=== PATIENT | male | born 1965 | race Caucasian/White ===

== ENCOUNTER 2017-11-12 10:02 | Emergency (ER) | payer OTHER, MEDICARE ==
[~2017-11-12] VITALS: Ht 182.9 cm; Wt 100.0 kg
[~2017-11-12 10:02] MED LIST: ADAL60TA9 PO; ATEN1TAB75 PO; BUPR-197 PO; CLON1 PO; DICL-86 PO; DOXY100T PO; ENDO5TAB6 PO; FENO50TA PO; FIORTAB4 PO; LORT5TAB PO; MOME1AER2 INH; MS C15TA7 PO; NEXI40CA PO; PROT40TA PO; SERT100 PO; SUMA6P SQ; TRAZ100T50 PO; VENTAER INH; ZOCO40TA PO; [UNRECOGNIZED DRUG - OTHER] PO
[2017-11-12 10:03] VITALS: BP 161/84; PULSE 76; RESP 16; TEMP 97.8; O2SAT 97
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
== END 2017-11-12 12:27 | disposition home or self-care (01) ==
LOC: NEPK 10:02
DX: S16.1XXA Strain of muscle, fascia and tendon at neck level, initial encounter (principal); V49.40XA Driver injured in collision with unspecified motor vehicles in traffic accident, initial encounter
CPT/HCPCS: 72125; 99284